=== PATIENT | female | born 1945 | race African-American/Black ===

== ENCOUNTER 2020-09-24 10:52 | Day surgery (SDC) | payer OTHER ==
[2020-09-23 14:30] VITALS: BMI 30.4
[2020-09-24 12:15] VITALS: PULSE 78; TEMP 97.8
[2020-09-24 12:57] VITALS: BP 151/68
== END 2020-09-24 13:00 | disposition home or self-care (01) ==
LOC: FASU-ENDO 10:52
PROVIDERS: ATTEND Internal Medicine Gastroenterology
PROC: 0DB68ZX Excision of Stomach, Via Natural or Artificial Opening Endoscopic, Diagnostic (ICD-10-PCS; principal; 2020-09-24 11:36)
DX: D64.9 Anemia, unspecified (principal); K29.50 Unspecified chronic gastritis without bleeding
CPT/HCPCS: 88305-TC; 88342-TC

== ENCOUNTER 2023-03-29 11:27 | Inpatient (IN) | payer OTHER ==
[2023-03-29] MEDS ORDERED: VANCOMYCIN 1 GRAM (PRE-DOCKED) 1,000 MG/250 ML BAG IVPB ONE (13:14)
[2023-03-29 13:45] LABS: VENOUS BASE EXCESS 2.3 mmol/L (-2-2); VENOUS O2 SATURATION 40.3 % (70-80); VENOUS PCO2 41.9 mmHg (38-52); VENOUS PH 7.425 (7.310-7.410)
[2023-03-29] MEDS: VANCOMYCIN 1,000 MG in DEXTROSE 5%-WATER - 250 ML IVPB ONE (13:50)
[2023-03-29 13:52] LABS: HEMATOCRIT 28.8 % (32.4-45.2); MCH 26.9 pg (25.7-33.7); MCHC 31.2 g/dl (32.0-36.0); MEAN CELL VOLUME 86.1 fl (80-96); MEAN PLT VOLUME 9.4 fl (7.5-11.1); PLATELET COUNT 220 10^3/uL (134-434); RBC 3.34 M/mm3 (3.60-5.2); RDW 15.3 % (11.6-15.6); WHITE BLOOD COUNT 19.6 K/mm3 (4.0-10.0)
[2023-03-29 13:53] LABS: INR 1.1 (0.83-1.09); PROTHROMBIN TIME (PATIENT) 12.8 SEC (9.7-13.0)
[2023-03-29 14:11] LABS: POTASSIUM 3.6 mmol/L (3.5-5.1)
[2023-03-29 14:12] LABS: CALCIUM 8.7 mg/dL (8.5-10.1)
[2023-03-29 14:13] LABS: ALBUMIN 2.2 g/dl (3.4-5.0); BLOOD UREA NITROGEN 34.6 mg/dL (7-18); MAGNESIUM 2.6 mg/dL (1.8-2.4)
[2023-03-29 14:15] LABS: EPI CELLS >36 /uL (0-25.1); HYALINE CASTS 2 /uL (0-3.1); PH,URINE 5.5 (5.0-8.0); URINE APPEARANCE CLOUDY; URINE BACTERIA 30 /uL (0-1359); URINE BILIRUBIN NEGATIVE (NEGATIVE); URINE COLOR YELLOW; URINE GLUCOSE (UA) NEGATIVE (NEGATIVE); URINE KETONE NEGATIVE (NEGATIVE); URINE LEUK ESTERASE TRACE (NEGATIVE); URINE NITRITE NEGATIVE (NEGATIVE); URINE PROTEIN 3+ (NEGATIVE); URINE RBC 24 /uL (0-23.9); URINE UROBILINOGEN 0.2 mg/dL (0.2-1.0); URINE WBC 101 /uL (0-25.8)
[2023-03-29 14:16] LABS: CREATININE 1.7 mg/dL (0.55-1.3)
[2023-03-29 14:18] LABS: BILIRUBIN,TOTAL 0.3 mg/dL (0.2-1); TOT PROT 7.4 g/dl (6.4-8.2)
[2023-03-29 14:21] LABS: ANISOCYTOSIS 1+; MACROCYTOSIS 0
[2023-03-29] MEDS ORDERED: ATORVASTATIN CA 40 MG TABLET (FP) ONE (21:42)
[2023-03-29] MEDS ORDERED: HEPARIN NA (PORCINE) 5,000 UNITS/ML 1ML VIAL ONE (21:43)
[2023-03-29] MEDS: ATORVASTATIN CA 40 MG TABLET (FP) PO SCH (22:17)
[2023-03-29] MEDS: HEPARIN NA (PORCINE) 5,000 UNITS/ML 1ML VIAL SQ SCH (22:17)
[2023-03-30 09:18] LABS: BASO % 0.1 % (0-2.0); EOS % 0.1 % (0-4.5); HEMATOCRIT 27.6 % (32.4-45.2); HEMOGLOBIN 8.6 GM/dL (10.7-15.3); LYMPH % 7.6 % (8-40); MCH 26.7 pg (25.7-33.7); MCHC 31.3 g/dl (32.0-36.0); MEAN CELL VOLUME 85.2 fl (80-96); MEAN PLT VOLUME 8.4 fl (7.5-11.1); MONO % 5.9 % (3.8-10.2); NEUT % 86.3 % (42.8-82.8); PLATELET COUNT 222 10^3/uL (134-434); RBC 3.24 M/mm3 (3.60-5.2); RDW 15.3 % (11.6-15.6); WHITE BLOOD COUNT 15.3 K/mm3 (4.0-10.0)
[2023-03-30 09:38] LABS: POTASSIUM 3.3 mmol/L (3.5-5.1)
[2023-03-30 09:42] LABS: BLOOD UREA NITROGEN 33.2 mg/dL (7-18); CALCIUM 8.2 mg/dL (8.5-10.1); IRON SERUM 31 ug/dL (50-175); MAGNESIUM 2.2 mg/dL (1.8-2.4); TOTAL IRON BINDING CAPACITY 134 ug/dL (250-450)
[2023-03-30 09:45] LABS: CREATININE 1.5 mg/dL (0.55-1.3)
[2023-03-30 09:46] LABS: BILIRUBIN,TOTAL 0.3 mg/dL (0.2-1)
[2023-03-30] MEDS: FUROSEMIDE 20 MG TABLET (FP) PO SCH (09:46)
[2023-03-30] MEDS: CLOPIDOGREL BISULFATE 75 MG TABLET (FP) PO SCH (09:46)
[2023-03-30] MEDS: ASPIRIN COATED 81 MG TABLET.EC PO SCH (09:46)
[2023-03-30 09:47] LABS: TOT PROT 6.4 g/dl (6.4-8.2)
[2023-03-30] MEDS ORDERED: VANCOMYCIN 1 GRAM (PRE-DOCKED) 1,000 MG/250 ML BAG IVPB ONE (09:49)
[2023-03-30] MEDS: PANTOPRAZOLE 40 MG TABLET PO SCH (12:51)
[2023-03-30] MEDS ORDERED: PANTOPRAZOLE 40 MG TABLET PO ONE (12:51)
[2023-03-30] MEDS: POTASSIUM CHLORIDE ORAL LIQUID 20 MEQ/15 ML PO ONE (17:22)
[2023-03-30] MEDS: CLINDAMYCIN 600MG PREMIX IVPB 600 MG/50 ML BAG IVPB SCH (17:22)
[2023-03-30] MEDS: POTASSIUM CHLORIDE 10 MEQ in DEXTROSE 5%-WATER - 1,000 ML IV SCH (20:30)
[2023-03-30] MEDS: ACETAMINOPHEN 325 MG TABLET (FP) PO PRN (21:33)
[2023-03-31] MEDS: NIFEdipine E.R. 30 MG TABLET PO SCH (09:25)
[2023-03-31] MEDS: IRON SUCROSE INJECTION 200 MG in SODIUM CHLORIDE 90 ML IVPB ONE (14:49)
[2023-03-31] MEDS: POTASSIUM CHLORIDE 10 MEQ in DEXTROSE 5%-WATER - 1,000 ML IV SCH (14:57)
[2023-03-31 20:28] VITALS: RESP 18
[2023-04-01 09:09] LABS: HEMATOCRIT 25.5 % (32.4-45.2); HEMOGLOBIN 8.3 GM/dL (10.7-15.3); MCH 27.6 pg (25.7-33.7); MCHC 32.6 g/dl (32.0-36.0); MEAN CELL VOLUME 84.6 fl (80-96); MEAN PLT VOLUME 9.1 fl (7.5-11.1); PLATELET COUNT 209 10^3/uL (134-434); RBC 3.01 M/mm3 (3.60-5.2); RDW 14.6 % (11.6-15.6); WHITE BLOOD COUNT 11.5 K/mm3 (4.0-10.0)
[2023-04-01 09:38] LABS: POTASSIUM 3.8 mmol/L (3.5-5.1)
[2023-04-01 09:40] LABS: ALBUMIN 1.7 g/dl (3.4-5.0); CALCIUM 7.6 mg/dL (8.5-10.1)
[2023-04-01 09:41] LABS: BLOOD UREA NITROGEN 27.2 mg/dL (7-18)
[2023-04-01 09:43] LABS: CREATININE 1.5 mg/dL (0.55-1.3)
[2023-04-01 09:45] LABS: BILIRUBIN,TOTAL 0.3 mg/dL (0.2-1); TOT PROT 5.9 g/dl (6.4-8.2)
[2023-04-01 10:34] LABS: ARTERIAL BLD GAS O2 SATURATION 96.8 % (95-98); ARTERIAL BLOOD GAS BASE EXCESS -0.3 mmol/L (-2-2); ARTERIAL BLOOD GAS PO2 80.5 mmHg (80-100); ARTERIAL BLOOD GAS pH 7.488 (7.350-7.450)
[2023-04-01 10:35] LABS: ALLENS TEST POSITIVE
[2023-04-01 10:53] LABS: ANISOCYTOSIS 0; MACROCYTOSIS 0
[2023-04-01] MEDS: LACTOBACILLUS ACIDOPHILUS 1 TABLET PO SCH (12:33)
[2023-04-01] MEDS: INSULIN (NOVOLOG) ASPART 100 UNITS/ML 10ML VIAL SQ SCH (17:09)
[2023-04-01] MEDS: DIVALPROEX SODIUM 125 MG SPRINKLE CAPS PO SCH (21:42)
[2023-04-01] MEDS: INSULIN (LEVEMIR) 100 UNITS/ML UNITS SQ SCH (21:44)
[2023-04-02] MEDS: FAMOTIDINE 20 MG TABLET PO SCH (10:16)
[2023-04-02] MEDS: ESCITALOPRAM OXALATE 10 MG TABLET PO SCH (10:16)
[2023-04-02] MEDS: POLYETHYLENE GLYCOL (HEALTHYLAX) 3350 17 GM PACKET PO SCH (10:17)
[2023-04-02] MEDS ORDERED: INSULIN ASPART SLIDING SCALE (NOVOLOG) 1 VIAL SQ ONE (10:21)
[2023-04-02 12:38] LABS: HEMATOCRIT 24.6 % (32.4-45.2); MCH 27.1 pg (25.7-33.7); MCHC 32.4 g/dl (32.0-36.0); MEAN CELL VOLUME 83.9 fl (80-96); MEAN PLT VOLUME 8.7 fl (7.5-11.1); PLATELET COUNT 256 10^3/uL (134-434); RBC 2.93 M/mm3 (3.60-5.2); RDW 15.2 % (11.6-15.6)
[2023-04-02 13:02] LABS: POTASSIUM 3.4 mmol/L (3.5-5.1)
[2023-04-02 13:04] LABS: CALCIUM 7.6 mg/dL (8.5-10.1)
[2023-04-02 13:05] LABS: ALBUMIN 1.7 g/dl (3.4-5.0); BLOOD UREA NITROGEN 26.8 mg/dL (7-18)
[2023-04-02 13:06] LABS: ANISOCYTOSIS 0; MACROCYTOSIS 0
[2023-04-02 13:08] LABS: CREATININE 1.7 mg/dL (0.55-1.3)
[2023-04-02 13:10] LABS: BILIRUBIN,TOTAL 0.2 mg/dL (0.2-1); TOT PROT 5.7 g/dl (6.4-8.2)
[2023-04-02] MEDS: POTASSIUM CHLORIDE ORAL LIQUID 20 MEQ/15 ML PO ONE (14:52)
[2023-04-04] MEDS: COLLAGENASE CLOSTRIDIUM HIST. 30 GRAMS TUBE TP SCH (13:48)
[2023-04-05] VITALS: BMI 27.6
[2023-04-05 11:59] LABS: HEMATOCRIT 25.9 % (32.4-45.2); HEMOGLOBIN 8.3 GM/dL (10.7-15.3); MCH 27.5 pg (25.7-33.7); MCHC 32.1 g/dl (32.0-36.0); MEAN CELL VOLUME 85.6 fl (80-96); MEAN PLT VOLUME 8.6 fl (7.5-11.1); PLATELET COUNT 338 10^3/uL (134-434); RBC 3.02 M/mm3 (3.60-5.2); RDW 14.8 % (11.6-15.6); WHITE BLOOD COUNT 13.5 K/mm3 (4.0-10.0)
[2023-04-05 12:25] LABS: CALCIUM 7.7 mg/dL (8.5-10.1)
[2023-04-05 12:26] LABS: ALBUMIN 1.9 g/dl (3.4-5.0); BLOOD UREA NITROGEN 28.5 mg/dL (7-18)
[2023-04-05 12:29] LABS: CREATININE 1.9 mg/dL (0.55-1.3)
[2023-04-05 12:31] LABS: BILIRUBIN,TOTAL 0.2 mg/dL (0.2-1)
[2023-04-05 16:18] VITALS: BP 118/46; PULSE 79; TEMP 98.9
== END 2023-04-05 18:10 | DRG 603 ==
LOC: JER 11:27 → JERBED 13:04 → J6S 03-30 14:52
PROVIDERS: ADMIT Internal Medicine; ATTEND Internal Medicine
DX: L03.115 Cellulitis of right lower limb (principal); L97.909 Non-pressure chronic ulcer of unspecified part of unspecified lower leg with unspecified severity; E87.0 Hyperosmolality and hypernatremia; K92.2 Gastrointestinal hemorrhage, unspecified; I24.89 Other forms of acute ischemic heart disease; L97.919 Non-pressure chronic ulcer of unspecified part of right lower leg with unspecified severity; F03.90 Unspecified dementia, unspecified severity, without behavioral disturbance, psychotic disturbance, mood disturbance, and anxiety; E11.51 Type 2 diabetes mellitus with diabetic peripheral angiopathy without gangrene; I12.9 Hypertensive chronic kidney disease with stage 1 through stage 4 chronic kidney disease, or unspecified chronic kidney disease; E11.22 Type 2 diabetes mellitus with diabetic chronic kidney disease; N18.9 Chronic kidney disease, unspecified; D64.9 Anemia, unspecified; A53.0 Latent syphilis, unspecified as early or late; I83.019 Varicose veins of right lower extremity with ulcer of unspecified site
CPT/HCPCS: 0241U-QW; 36415; 36600; 70450-TC; 71045-TC-FY; 80053; 81003; 82607; 82728; 82803; 82962; 83036; 83540; 83550; 83605; 83735; 84443; 84484; 85025; 85027; 85610; 85730; 86593; 86780; 86850; 86900; 86901; 87040; 87086; 93005; 93010; 93925-TC; 93971-TC; 97161-GP; 99291; J1644; J1756

== ENCOUNTER 2023-09-28 18:28 | Inpatient (IN) | payer OTHER ==
[2023-09-28 19:11] VITALS: BMI 29.0
[2023-09-28 21:29] LABS: HEMATOCRIT 31.9 % (32.4-45.2); HEMOGLOBIN 10.5 GM/dL (10.7-15.3); MCH 28.6 pg (25.7-33.7); MCHC 32.9 g/dl (32.0-36.0); MEAN CELL VOLUME 86.8 fl (80-96); RBC 3.67 M/mm3 (3.60-5.2); RDW 14.7 % (11.6-15.6); WHITE BLOOD COUNT 16.8 K/mm3 (4.0-10.0)
[2023-09-28 21:32] LABS: ADD RBC MORPHOLOGY YES
[2023-09-28 21:46] LABS: POTASSIUM 5.1 mmol/L (3.5-5.1)
[2023-09-28 21:50] LABS: ALBUMIN 2.7 g/dl (3.4-5.0); BLOOD UREA NITROGEN 36.8 mg/dL (7-18); CALCIUM 8.8 mg/dL (8.5-10.1)
[2023-09-28 21:52] LABS: CREATININE 3.1 mg/dL (0.55-1.3)
[2023-09-28 21:55] LABS: BILIRUBIN,TOTAL 0.5 mg/dL (0.2-1); TOT PROT 7.9 g/dl (6.4-8.2)
[2023-09-28] MEDS: SODIUM CHLORIDE 0.9% 500 ML INFUS.BAG IV ONE (22:10)
[2023-09-28 22:18] LABS: LACTIC ACID 3.3 mmol/L (0.4-2.0)
[2023-09-28 22:21] LABS: EPI CELLS 12 /uL (0-25.1); HYALINE CASTS 0 /uL (0-3.1); PH,URINE 6.5 (5.0-8.0); URINE APPEARANCE CLOUDY; URINE BACTERIA >9,000 /uL (0-1359); URINE BILIRUBIN NEGATIVE (NEGATIVE); URINE COLOR YELLOW; URINE GLUCOSE (UA) NEGATIVE (NEGATIVE); URINE KETONE NEGATIVE (NEGATIVE); URINE LEUK ESTERASE TRACE (NEGATIVE); URINE NITRITE NEGATIVE (NEGATIVE); URINE PROTEIN 1+ (NEGATIVE); URINE RBC 4 /uL (0-23.9); URINE UROBILINOGEN 0.2 mg/dL (0.2-1.0); URINE WBC 37 /uL (0-25.8)
[2023-09-28] MEDS ORDERED: CEFTRIAXONE 2 GM/100 ML BAG IVPB ONE (22:31)
[2023-09-28 22:50] LABS: ANISOCYTOSIS 0; MACROCYTOSIS 0; PLATELET ESTIMATE ADEQUATE
[2023-09-28 22:51] LABS: PLATELET COUNT 350 10^3/uL (134-434)
[2023-09-28] MEDS: CEFTRIAXONE 2 GM-D5W BAG 2 GM/50 ML BAG IVPB ONE (23:05)
[2023-09-28] MEDS ORDERED: HEPARIN NA (PORCINE) 5,000 UNITS/ML 1ML VIAL ONE (23:55)
[2023-09-28] MEDS: HEPARIN NA (PORCINE) 5,000 UNITS/ML 1ML VIAL SQ SCH (23:57)
[2023-09-29] MEDS ORDERED: ACETAMINOPHEN INJECTION 100 ML IVPB ONE
[2023-09-29] MEDS ORDERED: ACETAMINOPHEN 1000 MG/100 ML BAG IVPB PRN (00:06)
[2023-09-29] MEDS: ACETAMINOPHEN 1000 MG/100 ML BAG IVPB ONE (00:21)
[2023-09-29] MEDS: SODIUM CHLORIDE 1,000 ML IV SCH (00:42)
[2023-09-29] MEDS: DIVALPROEX SODIUM 125 MG SPRINKLE CAPS PO SCH (10:11)
[2023-09-29] MEDS: ESCITALOPRAM OXALATE 10 MG TABLET PO SCH (10:11)
[2023-09-29 10:19] LABS: BASO % 0.3 % (0-2.0); EOS % 0.4 % (0-4.5); HEMATOCRIT 30.2 % (32.4-45.2); HEMOGLOBIN 9.7 GM/dL (10.7-15.3); LYMPH % 18.3 % (8-40); MCH 28.1 pg (25.7-33.7); MCHC 32.1 g/dl (32.0-36.0); MEAN CELL VOLUME 87.5 fl (80-96); MEAN PLT VOLUME 8.8 fl (7.5-11.1); MONO % 6.4 % (3.8-10.2); NEUT % 74.6 % (42.8-82.8); PLATELET COUNT 282 10^3/uL (134-434); RBC 3.45 M/mm3 (3.60-5.2); RDW 14.2 % (11.6-15.6); WHITE BLOOD COUNT 13.4 K/mm3 (4.0-10.0)
[2023-09-29 10:30] LABS: POTASSIUM 3.6 mmol/L (3.5-5.1)
[2023-09-29 10:32] LABS: CALCIUM 7.9 mg/dL (8.5-10.1)
[2023-09-29 10:33] LABS: ALBUMIN 2.4 g/dl (3.4-5.0); BLOOD UREA NITROGEN 41.3 mg/dL (7-18)
[2023-09-29 10:38] LABS: BILIRUBIN,TOTAL 0.2 mg/dL (0.2-1); TOT PROT 6.4 g/dl (6.4-8.2)
[2023-09-29] MEDS: COLLAGENASE CLOSTRIDIUM HIST. 30 GRAMS TUBE TP SCH (12:12)
[2023-09-29] MEDS: SODIUM CHLORIDE 0.45% 1,000 ML IV SCH (15:13)
[2023-09-29] MEDS: ATORVASTATIN CA 40 MG TABLET (FP) PO SCH (21:34)
[2023-09-29] MEDS: CEFTRIAXONE 1 GM in DEXTROSE 5%-WATER - 50 ML IVPB SCH (21:34)
[2023-09-29] MEDS: DONEPEZIL HCL 10 MG TABLET (FP) PO SCH (21:35)
[2023-09-29] MEDS ORDERED: DONEPEZIL HCL 23 MG PO SCH (22:00)
[2023-09-30 09:11] LABS: POTASSIUM 3.5 mmol/L (3.5-5.1)
[2023-09-30 09:13] LABS: ALBUMIN 2.2 g/dl (3.4-5.0); BLOOD UREA NITROGEN 29.5 mg/dL (7-18); CALCIUM 7.8 mg/dL (8.5-10.1)
[2023-09-30 09:17] LABS: CREATININE 1.7 mg/dL (0.55-1.3)
[2023-09-30 09:18] LABS: BILIRUBIN,TOTAL 0.2 mg/dL (0.2-1); TOT PROT 6.1 g/dl (6.4-8.2)
[2023-09-30] MEDS: SODIUM CHLORIDE 0.45% 1,000 ML IV SCH (14:30)
[2023-09-30] MEDS: AMINO ACIDS/PROTEIN HYDROLYS 30 ML LIQUID.PKT PO SCH (17:59)
[2023-09-30] MEDS: PANTOPRAZOLE 40 MG TABLET PO SCH (18:50)
[2023-09-30] MEDS: DIVALPROEX SODIUM 250 MG TABLET E.C. PO SCH (21:46)
[2023-10-01] MEDS ORDERED: FUROSEMIDE 20 MG TABLET (FP) PO SCH (10:00)
[2023-10-01] MEDS: NIFEdipine E.R. 30 MG TABLET PO SCH (10:23)
[2023-10-01] MEDS: CLOPIDOGREL BISULFATE 75 MG TABLET (FP) PO SCH (10:23)
[2023-10-01] MEDS: MULTIVITAMINS (DAILY MVI) TABLET (FP) PO SCH (10:23)
[2023-10-01 15:00] VITALS: RESP 18
[2023-10-01] MEDS ORDERED: ACETAMINOPHEN 1000 MG/100 ML BAG IVPB PRN (18:14)
[2023-10-02 09:25] VITALS: BP 136/52; PULSE 65; TEMP 98.2
[2023-10-02] MEDS: CEFTRIAXONE 2 GM in DEXTROSE 5%-WATER 100 ML IVPB SCH (13:59)
[2023-10-03] MEDS ORDERED: CEFTRIAXONE 2 GM in DEXTROSE 5%-WATER 100 ML IVPB SCH (10:00)
== END 2023-10-02 17:54 | DRG 872 ==
LOC: JER 18:28 → JERBED 22:17 → J8W 09-29 03:37
PROVIDERS: ADMIT Internal Medicine; ATTEND Internal Medicine
DX: A41.9 Sepsis, unspecified organism (principal); N17.9 Acute kidney failure, unspecified; E87.0 Hyperosmolality and hypernatremia; E87.20 Acidosis, unspecified; N39.0 Urinary tract infection, site not specified; F03.90 Unspecified dementia, unspecified severity, without behavioral disturbance, psychotic disturbance, mood disturbance, and anxiety; I12.9 Hypertensive chronic kidney disease with stage 1 through stage 4 chronic kidney disease, or unspecified chronic kidney disease; N18.9 Chronic kidney disease, unspecified; E11.22 Type 2 diabetes mellitus with diabetic chronic kidney disease; D64.9 Anemia, unspecified; E11.51 Type 2 diabetes mellitus with diabetic peripheral angiopathy without gangrene; Z79.4 Long term (current) use of insulin
CPT/HCPCS: 0241U-QW; 36415; 70450-TC; 71045-TC-FY; 73630-TC-RT-FY; 74176-TC; 80053; 81003; 82272; 83605; 83690; 84484; 85025; 87040; 87070; 87077; 87086; 87186; 87205; 93005; 93010; 93306-TC; 99285-25; J0131; J1644